=== PATIENT | female | born 1975 | race American Indian/Alaskan Native ===

== ENCOUNTER 2018-03-10 10:59 | Inpatient (IN) | payer MEDICAID, OTHER ==
[2018-03-10 11:39] LABS: BASO # 0.1 K/uL (0.0-0.2); BASO % 2.1 % (0.0-2.0); EOS # 0.3 K/uL (0.0-0.7); EOS % 4.1 % (0.0-4.0); LYMPH # 2.1 K/uL (1.0-4.3); LYMPH % 32.9 % (20.0-40.0); MEAN CELL VOLUME 65.8 fL (81.0-99.0); MEAN CORPUSCULAR HEMOGLOBIN 20.7 pg (27.0-31.0); MEAN CORPUSCULAR HGB CONC 31.5 g/dL (33.0-37.0); MEAN PLATELET VOLUME 8.7 fL (7.2-11.7); MONO # 0.4 K/uL (0.0-0.8); MONO % 6.8 % (0.0-10.0); NEUT # 3.4 K/uL (1.8-7.0); NEUT % 54.1 % (50.0-75.0); NRBC % 0.1 % (0.0-2.0); RBC 4.84 Mil/uL (3.80-5.20); RED CELL DISTRIBUTION WIDTH 27.5 % (11.5-14.5); WHITE BLOOD COUNT 6.3 K/uL (4.8-10.8)
[2018-03-10 11:45] LABS: HCG,QUALITATIVE URINE NEGATIVE (NEGATIVE)
[2018-03-10 11:48] LABS: SQUAMOUS EPITHIAL 10 /hpf (0-5); URINE BACTERIA RARE (<OCC); URINE BILIRUBIN NEGATIVE (NEGATIVE); URINE BLOOD NEGATIVE (NEGATIVE); URINE CLARITY Hazy (Clear); URINE COLOR Yellow (YELLOW); URINE GLUCOSE (UA) NORMAL (Normal); URINE LEUKOCYTE ESTERASE NEG Leu/uL (Negative); URINE PROTEIN NEGATIVE (NEGATIVE); URINE UROBILINOGEN NORMAL mg/dL (0.2-1.0)
[2018-03-10 11:51] LABS: ACETAMINOPHEN < 10.0 ug/mL (10.0-30.0); SALICYLATE < 1.0 mg/dL 1
[2018-03-10 11:53] LABS: ALB/GLOB RATIO 1.3 (1.0-2.1); ALT/SGPT 31 U/L (9-52); AST/SGOT 23 U/L (14-36); BLOOD UREA NITROGEN 7 mg/dL (7-17); CALCIUM 9.1 mg/dl (8.6-10.4); GFR AFRICAN-AMERICAN > 60; GFR NON-AFRICAN AMERICAN > 60
--- NOTE | 2018-03-10 12:17 | C.PDOC ---
History Of Present Illness 42yo female, referred to ER by Dr. Ramos after she was seen earlier today for depression with psychotic features. Patient reports she has been hearing voices and also reports suicidal ideation. Patient also has a history of substance abuse and depression. Otherwise, patient denies any fever, chills, chest pain, shortness of breath, abdominal pain, and offers no other medical complaints. Time Seen by Provider: 03/10/18 12:11 Chief Complaint (Nursing): Psychiatric Evaluation History Per: Patient History/Exam Limitations: no limitations Onset/Duration Of Symptoms: Days Current Symptoms Are (Timing): Still Present Associated Symptoms: Depression, Paranoia, Suicidal Thoughts Past Medical History Reviewed: Historical Data, Nursing Documentation, Vital Signs Vital Signs: Last Vital Signs Temp 98.2 F 03/10/18 12:34 Pulse 69 03/10/18 12:34 Resp 14 03/10/18 12:34 BP 125/77 03/10/18 12:34 Pulse Ox 100 03/10/18 12:34 - Medical History PMH: Anxiety, Asthma, HTN, Hyperthyroidism, Seizures Denies: Diabetes, Hepatitis, HIV, Chronic Kidney Disease, Sexually Transmitted Disease Surgical History: No Surg Hx Family History: States: No Known Family Hx - Social History Hx Tobacco Use: Yes Hx Alcohol Use: No Hx Substance Use: No - Immunization History Hx Tetanus Toxoid Vaccination: No Hx Influenza Vaccination: No Hx Pneumococcal Vaccination: No Review Of Systems Except As Marked, All Systems Reviewed And Found Negative. Constitutional: Negative for: Fever, Chills Cardiovascular: Negative for: Chest Pain Respiratory: Negative for: Shortness of Breath Gastrointestinal: Negative for: Abdominal Pain Neurological: Negative for: Weakness, Numbness, Headache Psych: Positive for: Anxiety, Depression, Suicidal ideation Physical Exam - Physical Exam Appears: Non-toxic, No Acute Distress, Other (obese) Skin: Normal Color Head: Normacephalic Eye(s): bilateral: Normal Inspection Neck: Normal ROM, Supple Chest: Symmetrical Cardiovascular: Rhythm Regular Respiratory: Normal Breath Sounds Gastrointestinal/Abdominal: Normal Exam, Soft, No Tenderness Back: Normal Inspection Extremity: Normal ROM, No Pedal Edema Neurological/Psych: Oriented x3, Other (flat affect) ED Course And Treatment - Laboratory Results Result Diagrams: 03/10/18 11:28 03/10/18 11:28 Lab Interpretation: Normal (ua, tox, asa/tylenol, etoh all neg.) Urine POC: Negative O2 Sat by Pulse Oximetry: 98 Pulse Ox Interpretation: Normal Reevaluation Time: 12:17 Reassessment Condition: Improved - Physician Consult Information Outcome Of Conversation: 1215: d/w Crisis, ok to admit. Medical Decision Making Medical Decision Making: h/o depression, now with hallucinations: ddx depression with psychotic features, first schizophrenic break. Disposition Doctor Will See Patient In The: Hospital Counseled Patient/Family Regarding: Studies Performed, Diagnosis - Disposition Disposition: HOSPITALIZED Disposition Time: 12:18 Condition: GOOD - Clinical Impression Clinical Impression: Major depression with psychotic features - Scribe Statement The provider has reviewed the documentation as recorded by the Yoan Lopes Provider Attestation: All medical record entries made by the Yoan were at my direction and personally dictated by me. I have reviewed the chart and agree that the record accurately reflects my personal performance of the history, physical exam, medical decision making, and the department course for this patient. I have also personally directed, reviewed, and agree with the discharge instructions and disposition.
[2018-03-10 12:47] VITALS: O2SAT 98
[2018-03-10 12:54] LABS: BARBITURATES, UR NEGATIVE (NEGATIVE); OPIATES, UR NEGATIVE (NEGATIVE); PHENCYCLIDINE, UR NEGATIVE (NEGATIVE)
[2018-03-10 13:20] LABS: BENZODIAZEPINES, UR POSITIVE (NEGATIVE)
--- NOTE | 2018-03-10 14:06 | PCM.BM ---
Treatment Plan Problems - Problems identified on initial assessmt Depression Date Initiated: 03/10/18 Time Initiated: 14:03 Assessment reference: NA Status: Active Suicidal Ideation Date Initiated: 03/10/18 Time Initiated: 14:03 Assessment reference: NA Status: Active Treatment assets and liabiliti Patient Assests: adapts well, cooperative, ADL independent, physically healthy, negotiates basic needs, cognitively intact Patient Liabilities: live alone, substance abuse (+ Benzo), medical problems ( Heart problems, Seizure) - Milieu Protocol Maintain good personal hygiene: daily Encourage regular showers, daily Remind patient to perform daily oral care, daily Assist patient to perform ADL's (Self) Conduct patient checks and document Observation sheet: Q15 minutes (Safety) Maintain personal safety: every shift Educate patient to report safety concerns to staff, every shift Monitor environment for contraband/sharps Medication safety: Monitor for expected outcome, potential side effects: every shift, Assess barriers to learning: every shift, Assess readiness for medication education: every shift
--- NOTE | 2018-03-10 15:55 | PCM.PSYCH ---
Initial Psychiatric Evaluation - Initial Psychiatric Evaluation Type of Admission: Voluntary Legal Status: Capacity History of Present Illness and Precipitating Events: Pt brought from clinic for SI. Patient is a 42 year old single female referred by and brought in by Dr. Ramos from [facility] the outpatient clinic. Patient stated that she had an inake this morning at the [facility] outpatient clinic and was asked questions by the doctor and the doctor said to her that she needed to come across the street and be admitted. Patient explained that she told the doctor that she's depressed and talking to someone that's not there and the voice "Thelma - female" tell her to hurt herself. Patient further explained that on March 01 she went to watch the [employer] and had thoughts of jumping off a bridge as the voice was encourging her to do same. Patient stated that her sister noticed something was wrong and took her home. Patient said "this has been going on for a while and is starting to get the best of me". Patient currently denied any suicidal/ homicidal ideations along with auditory/visual hallucinations. As per previous records Patient has no previous psychiatric history. Clinician spoke to Dr. Ramos who advised that Patient needed a psychiatric evaluation as she came for intake appointment and stated that she was hearing a commanding voice telling her to commit suicide. Patient reportedly told Dr. Ramos that she was suicidal with a paln to overdose on pills and on March 01, 2018 and wanted to jump off a bridge. Dr. Ramos feels Patient would benefit from an inpatient admission. [ End ] Current Medications: Active Medications Generic Name Dose Route Start Last Admin Trade Name Freq PRN Reason Stop Dose Admin Pneumococcal Polyvalent Vaccine 0.5 ml 03/14/18 10:00 Pneumovax 23 Vaccine IM 03/14/18 10:01 .ONCE ONE Past Psychiatric History - Past Psychiatric History Previous Treatment History: None Pertinent Medical Hx (Current Medical&Sleep Prob, Allergies): Allergies Allergy/AdvReac Type Severity Reaction Status Date / Time aspirin AdvReac NAUSEA Verified 11/14/17 21:17 Simethicone [Phazyme] 250 mg PO TID #30 capsule 11/15/17 ALPRAZolam PO 03/10/18 Levetiracetam DAILY 03/10/18 Metoprolol PO DAILY 03/10/18 Mexiletine PO DAILY 03/10/18 Sertraline HCl PO DAILY 03/10/18 Review of Systems - Review of Systems All systems: reviewed and no additional remarkable complaints except - Psychiatric Psychiatric: Anxiety, Auditory Hallucinations, Irritability, Paranoia, Suicidal Ideation Mental Status Examination - Personal Presentation Personal Presentation: Looks stated age - Affect Affect: Constricted, Depressed - Motor Activity Motor Activity: Calm - Reliability in Providing Information Reliability in Providing Information: Fair - Speech Speech: Organized - Mood Mood: Depressed, Anxious - Formal Thought Process Formal Thought Process: Hallucinations, Delusions, Paranoia - Hallucinations/Delusions Hallucinations: Auditory Delusions: Persecution - Obsessions/Compulsions Obsessions: No Compulsions: No - Cognitive Functions Orientation: Person, Place, Situation, Time Sensorium: Alert Attention/Concentration: Attentive Abstract Thinking: [place] Estimate of Intelligence: Below average Judgement: Imparied, as evidence by: Poor judgement, Imparied, as evidence by: Lack of insight into illness - Risk Risk: Suicidal, Diminished functioning - Limitations Limitations: Living alone DSM 5 DX - DSM 5 DSM 5 Diagnosis: Schizoaffective disorder depressed type - Recommended/Plan of Treatment Treatment Recommendations and Plan of Treatment: Schizoaffective disorder depressed type Major depressive disorder moderate CBT Psychoeducation Supportive therapy, group therapy Zoloft 50 mg by mouth daily Haldol 10 mg PO BID Trazodone 50 mg by mouth daily at bedtime
[2018-03-11 06:43] VITALS: BP 128/80; PULSE 70; RESP 19; TEMP 98.1
[2018-03-11] MEDS ORDERED: Simethicone 80 mg Chewtab PO SCH (10:00)
[2018-03-11] MEDS ORDERED: MEXILETINE 150 MG PO SCH (10:00)
[2018-03-11] MEDS ORDERED: Metoprolol Succinate 25 mg XL Tab PO SCH (10:00)
--- NOTE | 2018-03-11 10:59 | PCM.PYCHDC ---
Mental Status Examination - Mental Status Examination Orientation: Person, Place, Situation, Time Memory: Impaired Affect: Constricted Attention: WNL Concentration: WNL Association: WNL Fund of Knowledge: WNL Formal Thought Process: No Impairment Discharge Summary - Discharge Note Laboratory Data: Abnormal Lab Results 03/10/18 03/10/18 03/10/18 11:28 11:28 11:28 WBC 6.3 RBC 4.84 Hgb 10.0 L Hct 31.9 L MCV 65.8 L MCH 20.7 L MCHC 31.5 L RDW 27.5 H Plt Count 296 MPV 8.7 Neut % (Auto) 54.1 Lymph % (Auto) 32.9 Mckenzie % (Auto) 6.8 Eos % (Auto) 4.1 H Baso % (Auto) 2.1 H Neut # (Auto) 3.4 Lymph # (Auto) 2.1 Mckenzie # (Auto) 0.4 Eos # (Auto) 0.3 Baso # (Auto) 0.1 Sodium 144 Potassium 3.6 Chloride 104 Carbon Dioxide 29 Anion Gap 15 BUN 7 Creatinine 0.8 Est GFR ( Amer) > 60 Est GFR (Non-Af Amer) > 60 Random Glucose 91 Calcium 9.1 Total Bilirubin 0.7 AST 23 ALT 31 Alkaline Phosphatase 72 Total Protein 7.0 Albumin 4.0 Globulin 3.0 Albumin/Globulin Ratio 1.3 Urine Color Yellow Urine Clarity Hazy Urine pH 6.0 Ur Specific [place] 1.013 Urine Protein Negative Urine Glucose (UA) Normal Urine Ketones Negative Urine Blood Negative Urine Nitrate Negative Urine Bilirubin Negative Urine Urobilinogen Normal Ur Leukocyte Esterase Neg Urine WBC (Auto) 3 Urine RBC (Auto) < 1 Ur Squamous Epith Cells 10 H Urine Bacteria Rare Urine HCG, Qual Negative Salicylates Urine Opiates Screen Urine Methadone Screen Acetaminophen Ur Barbiturates Screen Ur Phencyclidine Scrn Ur Amphetamines Screen U Benzodiazepines Scrn U Oth Cocaine Metabols U Cannabinoids Screen Alcohol, Quantitative < 10 03/10/18 03/10/18 11:28 12:31 WBC RBC Hgb Hct MCV MCH MCHC RDW Plt Count MPV Neut % (Auto) Lymph % (Auto) Mckenzie % (Auto) Eos % (Auto) Baso % (Auto) Neut # (Auto) Lymph # (Auto) Mckenzie # (Auto) Eos # (Auto) Baso # (Auto) Sodium Potassium Chloride Carbon Dioxide Anion Gap BUN Creatinine Est GFR ( Amer) Est GFR (Non-Af Amer) Random Glucose Calcium Total Bilirubin AST ALT Alkaline Phosphatase Total Protein Albumin Globulin Albumin/Globulin Ratio Urine Color Urine Clarity Urine pH Ur Specific [place] Urine Protein Urine Glucose (UA) Urine Ketones Urine Blood Urine Nitrate Urine Bilirubin Urine Urobilinogen Ur Leukocyte Esterase Urine WBC (Auto) Urine RBC (Auto) Ur Squamous Epith Cells Urine Bacteria Urine HCG, Qual Salicylates < 1.0 Urine Opiates Screen Negative Urine Methadone Screen Negative Acetaminophen < 10.0 L Ur Barbiturates Screen Negative Ur Phencyclidine Scrn Negative Ur Amphetamines Screen Negative U Benzodiazepines Scrn Positive U Oth Cocaine Metabols Negative U Cannabinoids Screen Negative Alcohol, Quantitative Consultations:: List each consultation separately and include: 1. Reason for request. 2. Findings. 3. Follow-up Summary of Hospital Course include:: 1. Description of specific treatment plan utilized for patients during their course of treatmen. 2. Summarize the time- course for resolution of acute symptoms and/or regressed behaviors. 3. Describe issues identified and worked on during hospitalization. 4. Describe medication utilized. 5. Describe medical problems identified and treated. 6. Reassessment of suicide risk Summary of Hospital Course: Pt brought from clinic for SI. Patient is a 42 year old single female referred by and brought in by Dr. Ramos from [facility] the outpatient clinic. Patient stated that she had an inake this morning at the [facility] outpatient clinic and was asked questions by the doctor and the doctor said to her that she needed to come across the street and be admitted. Patient explained that she told the doctor that she's depressed and talking to someone that's not there and the voice "Thelma - female" tell her to hurt herself. Patient further explained that on March 01 she went to watch the [employer] and had thoughts of jumping off a bridge as the voice was encourging her to do same. Patient stated that her sister noticed something was wrong and took her home. Patient said "this has been going on for a while and is starting to get the best of me". Patient currently denied any suicidal/ homicidal ideations along with auditory/visual hallucinations. As per previous records Patient has no previous psychiatric history. Clinician spoke to Dr. Ramos who advised that Patient needed a psychiatric evaluation as she came for intake appointment and stated that she was hearing a commanding voice telling her to commit suicide. Patient reportedly told Dr. Ramos that she was suicidal with a paln to overdose on pills and on March 01, 2018 and wanted to jump off a bridge. Dr. Ramos feels Patient would benefit from an inpatient admission. [ End ] - Final Diagnosis (DSM 5) Condition upon Discharge: GOOD Disposition: HOME/ ROUTINE Prescriptions/Medication Reconciliation: Benztropine [Cogentin] 1 mg PO BID #60 tab Haloperidol [Haldol] 5 mg PO BID #60 tab Sertraline [Zoloft] 100 mg PO DAILY #30 tab
[2018-03-14] MEDS ORDERED: Pneumococcal 23-Valent Vaccine IM ONE (10:00)
== END 2018-03-11 12:55 | disposition home or self-care (01) | DRG 430 ==
LOC: C.ER 10:59 → C.9E 12:16 → C.5E 12:48
PROVIDERS: ADMIT Psychiatry & Neurology Psychiatry; ATTEND Psychiatry & Neurology Psychiatry
DX: F32.3 Major depressive disorder, single episode, severe with psychotic features (principal); I10 Essential (primary) hypertension; J45.909 Unspecified asthma, uncomplicated; R45.851 Suicidal ideations; Z87.891 Personal history of nicotine dependence; F19.10 Other psychoactive substance abuse, uncomplicated